=== PATIENT | male | born 1955 | race Caucasian/White ===

== ENCOUNTER 2017-11-09 13:38 | Emergency (ER) | payer SELFPAY ==
[~2017-11-09] VITALS: Ht 177.8 cm; Wt 72.6 kg
[2017-11-09] MEDS ORDERED: SODIUM CHLORIDE 0.9% 1,000 ML IV ONE (13:59)
[2017-11-09] MEDS ORDERED: LIDOCAINE 1% HCL (LOCAL ANESTH.) INJ 20ML MDV IJ ONE (14:00)
[2017-11-09] MEDS ORDERED: NEOMYCIN-BACITRACIN-POLYM UNITDOSE PKG TOP OINT TOP ONE (14:15)
[2017-11-09] MEDS ORDERED: cefTRIAXone 1GM/10ml IVPUSH 10 ML IV ONE (14:30)
[2017-11-09] MEDS ORDERED: HYDROcodone-ACET 10/325MG TAB PO ONE (14:30)
[2017-11-09 15:29] VITALS: BP 123/85
== END 2017-11-09 16:14 | disposition home or self-care (01) ==
LOC: EDBD 13:38 → ER 13:43
DX: S42.402A Unspecified fracture of lower end of left humerus, initial encounter for closed fracture (principal); S51.012A Laceration without foreign body of left elbow, initial encounter; I10 Essential (primary) hypertension; Z88.0 Allergy status to penicillin; W22.8XXA Striking against or struck by other objects, initial encounter; Y93.89 Activity, other specified; Y99.8 Other external cause status; Y92.89 Other specified places as the place of occurrence of the external cause
CPT/HCPCS: 12005; 29105; 73080; 96374; 99284; J0696; J2001; J7030